=== PATIENT | female | born 1960 | race Caucasian/White ===

== ENCOUNTER 2018-09-09 19:27 | Emergency (ER) | payer MEDICARE, OTHER ==
[~2018-09-09] VITALS: Ht 149.9 cm; Wt 67.8 kg
[~2018-09-09 19:27] MED LIST: METO-448 PO; PAIN MEDS
[2018-09-09 19:31] VITALS: Ht 149.9 cm; Wt 67.8 kg
[2018-09-09] MEDS ORDERED: ACETAMINOPHEN 325 MG TAB PO ONE (22:00)
[2018-09-10] MEDS ORDERED: ACET500C5 PO (00:16)
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
[2018-09-10 00:27] VITALS: BP 162/79; PULSE 66; RESP 18
== END 2018-09-10 00:29 | disposition home or self-care (01) ==
LOC: FTE 19:27
DX: R07.89 Other chest pain (principal); E11.9 Type 2 diabetes mellitus without complications; I10 Essential (primary) hypertension
CPT/HCPCS: 36415; 71250; 72125; 74176; 80053; 81003; 82550; 82553; 84484; 85025; 85610; 85730; 93005